=== PATIENT | male | born 1980 | race Caucasian/White ===

== ENCOUNTER 2018-01-25 02:03 | Emergency (ER) | payer OTHER, BC ==
[2018-01-25 02:28] VITALS: BP 135/87
--- NOTE | 2018-01-25 02:42 | EDM.PDOC ---
ED HPI GENERAL MEDICAL PROBLEM - General Chief Complaint: Lower Extremity Injury/Pain Stated Complaint: ROLLED LEFT ANKLE AT WORK Time Seen by Provider: 01/25/18 02:32 Source of Information: Reports: Patient History Limitations: Reports: No Limitations - History of Present Illness INITIAL COMMENTS - FREE TEXT/NARRATIVE: 37-year-old male presents to the ED with an acute inversion injury to his left ankle that occurred in the workplace tonight. Patient states he stepped on an uneven piece of ground he believes a piece of score area which caused him to severely invert his left ankle. States he ripped a hole through his leather boot. Did not fall to the ground he was able to grab onto an object and prevent the fall. Injury occurred 2 hours ago. Suspect probably has developed significant swelling both lateral and medial ankle and is unable to weight- bear. No previous surgery to the left ankle but he's had a previous sprain in the past. Onset: Today Onset Date: 01/25/18 Onset Time: 12:15 Duration: Hour(s): Location: Reports: Lower Extremity, Left (Left ankle and foot.) Quality: Reports: Ache, Throbbing Severity: Moderate Improves with: Reports: Rest Worsens with: Reports: Other, Movement (Unable to weight-bear.) Context: Denies: Activity, Exercise, Lifting, Sick Contact, Trauma Associated Symptoms: Reports: No Other Symptoms Treatments [employer]AKING [employer]: Reports: NSAIDS (Motrin.) Left Ankle Pain Score (Numeric/FACES): 7 - Related Data Allergies Allergy/AdvReac Type Severity Reaction Status Date / Time bee venom protein (honey bee) Allergy Cannot Verified 01/25/18 02:26 Remember mushroom Allergy Cannot Verified 01/25/18 02:26 Remember Penicillins Allergy Cannot Verified 01/25/18 03:19 Remember Home Meds: Home Meds metFORMIN [Glucophage XR] 500 mg PO BIDMEALS #60 tab.er 10/04/14 [Rx] Past Medical History Musculoskeletal History: Reports: Other (See Below) (Previous torn deltoid ligament right ankle requiring surgical repair) Review of Systems - Review of Systems Review Of Systems: See Below Constitutional: Reports: No Symptoms Eyes: Reports: No Symptoms Ears: Reports: No Symptoms Nose: Reports: No Symptoms Mouth/Throat: Reports: No Symptoms Respiratory: Reports: No Symptoms Cardiovascular: Reports: No Symptoms GI/Abdominal: Reports: No Symptoms Genitourinary: Reports: No Symptoms Musculoskeletal: Reports: Back Pain Skin: Reports: No Symptoms (Occasional low back pain) Neurological: Reports: No Symptoms Psychiatric: Reports: No Symptoms ED EXAM, GENERAL - Physical Exam Exam: See Below Exam Limited By: No Limitations General Appearance: Alert, WD/WN, No Apparent Distress Eye Exam: Bilateral Eye: Normal Inspection Peripheral Pulses: 2+: Posterior Tibial (L), Posterior Tibial (R), Dorsalis Pedis (L), Dorsalis Pedis (R) Extremities: Other (Examination was limited to the left lower extremity. He does have pain on palpation of the proximal fibula left side. He also has pain in his ankle and from compression of the mid shaft of the tib-fib. There is obvious swelling over the lateral malleolus. He also has point tenderness over the deltoid ligament medially. No significant pain on compression of the foot bones.) Neurological: Alert ( Normal dorsalis pedis and posterior tibial pulses.), Oriented, CN II-XII Intact, Normal Cognition, Other (Unable to weight-bear left foot.). No: Normal Gait Psychiatric: Normal Affect, Normal Mood Skin Exam: Warm, Dry, Intact, Normal Color, No Rash Course - Vital Signs Last Recorded V/S: Last Vital Signs Temp 36.7 C 01/25/18 02:26 Pulse 98 01/25/18 02:26 Resp 18 01/25/18 02:26 BP 135/87 01/25/18 02:26 Pulse Ox 98 01/25/18 02:26 - Orders/Labs/Meds Orders: Active Orders 24 hr Category Date Time Status Ankle Min 3V Lt [CR] Stat Exams 01/25/18 02:37 Taken Tibia Fibula Lt [CR] Stat Exams 01/25/18 02:36 Taken - Radiology Interpretation Free Text/Narrative:: 37-year-old male presents to the ED with an acute inversion injury to his left ankle. This occurred in the workplace about 2 hours ago. Patient believes he stepped on a piece of score area which caused him to invert his ankle severely. States it ripped a hole through the side of his leather boot. Nation reveals pain proximal fibula and obviously the distal fibula with swelling also pain over the medial ligaments particular the deltoid ligament. X-rays of the ankle and tib-fib to be done. - Re-Assessments/Exams Free Text/Narrative Re-Assessment/Exam: 01/25/18 03:16 x-rays of the left tib-fib reveal no fractures. X-ray of the ankle to does not reveal any fractures but he does appear to have a anterior loose body overlying the talus. Fractures are identified. I stressed the ligaments and they all appear to be intact. Therefore he will be treated conservatively with Gorge wrap elevation ice pack every 4 hours and nonweightbearing crutches until he can walk without severe pain and return to work. Of note he states he has peripheral crutches at home. Note given to excuse him from the work place for the next 3 days per his request as he feels he will be able to get back to work within 3 days he will use Motrin 6 mg every 6 hours needed for pain relief. Departure - Departure Time of Disposition: 03:17 Disposition: Home, Self-Care 01 Condition: Fair Clinical Impression: Sprain of calcaneofibular ligament of left ankle, initial encounter - Discharge Information *PRESCRIPTION DRUG MONITORING PROGRAM REVIEWED*: No *COPY OF PRESCRIPTION DRUG MONITORING REPORT IN PATIENT [place]: No Instructions: Ankle Sprain, [id number] Referrals: Carrie Rossi NP [Primary Care Provider] - Forms: ED Department Discharge, ED Return to Work/School Form Additional Instructions: Evaluation the emergency room today this morning due to acute injury to her left ankle from an inversion injury after stepping stepping on uneven surface. In the workplace this morning. Examination reveals marked swelling over the lateral part of the ankle indicating significant sprain of the lateral ligaments. However he also pain over the medial ligaments suggesting partial strain of the inside ankle ligaments as well. X-rays of the tib-fib and the ankle do not reveal any broken bones. Stressing the ligaments also reveal them to be intact. Therefore you have suffered a significant sprain of your ankle. This may take anywhere from 10-14 days to settle down completely. As we discussed you prefer to try and return to work with a well laced up once the swelling goes down. Note given to excuse her from the work place for the next 2- 3 days. Motrin 600 mg every 6 hours needed to reduce pain and inflammation. Suggest nonweightbearing crutch walking for the next 2 days. Elevation of the leg is much as possible for 2 days to reduce swelling. Ice pack to the area for one half hour out of every 4 hours to reduce swelling as well. Gorge wrap on during the day and off at night although it should stay on all night tonight. - My Orders Last 24 Hours: My Active Orders 01/25/18 02:36 Tibia Fibula Lt [CR] Stat 01/25/18 02:37 Ankle Min 3V Lt [CR] Stat - Assessment/Plan Last 24 Hours: My Active Orders 01/25/18 02:36 Tibia Fibula Lt [CR] Stat 01/25/18 02:37 Ankle Min 3V Lt [CR] Stat
--- NOTE | 2018-01-27 19:39 | CR ---
Left ankle: Four views of the left ankle were obtained. Comparison: Prior left ankle exam of 02/07/09. Ankle mortise is symmetric. Small calcification is noted off the anterior ankle most likely due to dystrophic calcification from old injury. No acute fracture, dislocation or other bony abnormality is seen. Impression: 1. Calcification as noted above. Nothing acute is seen on left ankle study. Diagnostic code #2
--- NOTE | 2018-01-27 19:39 | CR ---
Left tibia and fibula: AP and lateral views of the left tibia and fibula were obtained. Comparison: No previous study. Small soft tissue calcification seen within the upper anterior patel. Small calcification is noted off the anterior ankle. No acute fracture or other bony abnormality is seen. Impression: 1. Incidental findings. Nothing acute is seen on two-view left tibia and fibula study. Diagnostic code #2
== END 2018-01-25 03:29 | disposition home or self-care (01) ==
LOC: JD.ED 02:03
DX: S93.412A Sprain of calcaneofibular ligament of left ankle, initial encounter (principal); Z91.030 Bee allergy status; Z88.0 Allergy status to penicillin; Z91.018 Allergy to other foods; X50.1XXA Overexertion from prolonged static or awkward postures, initial encounter; Y99.0 Civilian activity done for income or pay
CPT/HCPCS: 73590-26-LT; 73590-LT; 73610-26-LT; 73610-LT; 99283

== ENCOUNTER 2019-04-10 20:32 | Emergency (ER) | payer BC, OTHER ==
--- NOTE | 2019-04-10 20:41 | EDM.PDOC ---
ED HPI GENERAL MEDICAL PROBLEM - General Chief Complaint: Lower Extremity Injury/Pain Stated Complaint: LEFT ANKLE INJURY Time Seen by Provider: 04/10/19 20:40 Source of Information: Reports: Patient, RN Notes Reviewed - History of Present Illness INITIAL COMMENTS - FREE TEXT/NARRATIVE: 38 year old male that had a large pipe fall against his L post leg and foot yesterday afternoon. This was heavy due to length of about 40 feet. He has had pain post leg and foot with wt bearing. Minimal discomfort at rest. Increased bruising today. Left Ankle Pain Score (Numeric/FACES): 6 - Related Data Allergies Allergy/AdvReac Type Severity Reaction Status Date / Time bee venom protein (honey bee) Allergy Anaphylactic Verified 04/10/19 20:48 Shock metformin Allergy Itching Verified 04/10/19 20:48 mushroom Allergy Anaphylactic Verified 04/10/19 20:48 Shock Penicillins Allergy Anaphylactic Verified 04/10/19 20:48 Shock Home Meds: Home Meds . [Unable To Obtain] 20 mg PO DAILY 04/10/19 [History] Insulin Lispro [HumaLOG] 10 units SQ ASDIRECTED 04/10/19 [History] Semaglutide [Ozempic] 0.5 mg SQ WEEKLY 04/10/19 [History] Past Medical History Musculoskeletal History: Reports: Other (See Below) (Previous torn deltoid ligament right ankle requiring surgical repair) Review of Systems - Review of Systems Review Of Systems: See Below Constitutional: Reports: No Symptoms Respiratory: Denies: Shortness of Breath Cardiovascular: Denies: Chest Pain GI/Abdominal: Denies: Abdominal Pain, Nausea, Vomiting Musculoskeletal: Reports: Leg Pain, Foot Pain Skin: Reports: Other (abrasion and bruising L post foot) ED EXAM, GENERAL - Physical Exam Exam: See Below General Appearance: Alert, No Apparent Distress Head: Atraumatic Neck: Supple Respiratory/Chest: No Respiratory Distress Extremities: Other (there is tenderness of the L post lower leg, ankle and foot with brusing of the lower post foot, no visible deformity) Neurological: Alert, No Motor/Sensory Deficits Skin Exam: Warm, Dry Course - Vital Signs Last Recorded V/S: Last Vital Signs Temp 97.7 F 04/10/19 20:40 Pulse 104 H 04/10/19 20:40 Resp 19 04/10/19 20:40 BP 142/86 H 04/10/19 20:40 Pulse Ox 96 04/10/19 20:40 - Orders/Labs/Meds Orders: Active Orders 24 hr Category Date Time Status Foot Comp Min 3V Lt [CR] Stat Exams 04/10/19 20:58 Taken Tibia Fibula Lt [CR] Stat Exams 04/10/19 20:58 Taken Departure - Departure Time of Disposition: 21:46 Disposition: Home, Self-Care 01 Condition: Fair Clinical Impression: Contusion, foot Qualifiers: Encounter type: initial encounter Laterality: left Qualified Code(s): S90.32XA - Contusion of left foot, initial encounter Contusion of leg, left Qualifiers: Encounter type: initial encounter Qualified Code(s): S80.12XA - Contusion of left lower leg, initial encounter - Discharge Information Referrals: Carrie Rossi NP [Primary Care Provider] - Forms: ED Department Discharge Additional Instructions: Gorge wrap L foot and ankle, ice packs and elevation as best you can when you can for swelling, tylenol or ibuprofen if needed for pain. Have rechecked if not getting back to normal within 7 to 10 days as expected. - My Orders Last 24 Hours: My Active Orders 04/10/19 20:58 Foot Comp Min 3V Lt [CR] Stat Tibia Fibula Lt [CR] Stat - Assessment/Plan Last 24 Hours: My Active Orders 04/10/19 20:58 Foot Comp Min 3V Lt [CR] Stat Tibia Fibula Lt [CR] Stat
[2019-04-10 20:47] VITALS: BP 142/86; PULSE 104
--- NOTE | 2019-04-12 13:42 | CR ---
Left foot: Three views of the left foot were obtained. Comparison: No prior foot exam. Findings: No discrete fracture, dislocation or other bony abnormality is appreciated. Impression: 1. No abnormality is appreciated on the left foot exam. Diagnostic code #1
--- NOTE | 2019-04-12 13:42 | CR ---
Left tibia and fibula: AP and lateral views of the left tibia and fibula were obtained. Comparison: Previous left tibia and fibula exam of 01/25/18. Soft tissue calcifications are noted within the upper anterior patel which are stable. No fracture, dislocation or other bony abnormality is identified. Impression: 1. Soft tissue calcifications which are stable from prior exam and are felt to be incidental. 2. Nothing acute is appreciated on two-view left tibia and fibula exam. Diagnostic code #2
== END 2019-04-10 21:59 | disposition home or self-care (01) ==
LOC: JD.ED 20:32
DX: S90.32XA Contusion of left foot, initial encounter (principal); S80.12XA Contusion of left lower leg, initial encounter; Z88.0 Allergy status to penicillin; Z88.8 Allergy status to other drugs, medicaments and biological substances; Z91.018 Allergy to other foods; Z91.030 Bee allergy status; W20.8XXA Other cause of strike by thrown, projected or falling object, initial encounter
CPT/HCPCS: 73590-26-LT; 73590-LT; 73630-26-LT; 73630-LT; 99282; 99283-25